=== PATIENT | male | born 2000 | race Caucasian/White ===

== ENCOUNTER 2018-03-04 12:48 | Emergency (ER) | payer OTHER, SELFPAY ==
[2018-03-04 13:02] VITALS: BP 112/77; PULSE 71; RESP 18; TEMP 37.1; O2SAT 97
--- NOTE | 2018-03-04 13:26 | DI.REPORT_ITS ---
SYMPTOM/DIAGNOSIS: CRUSH INJURY MID FOOT RIGHT FOOT: There is no evidence of a fracture or dislocation.
[2018-03-04] MEDS: Acetaminophen 500 MG TAB 1000 MG PO (13:36)
[2018-03-04] MEDS: Ibuprofen 600 MG TAB PO (13:36)
--- NOTE | 2018-03-04 13:47 | ED.GENADUL ---
Disposition Clinical Impression: Foot contusion Disposition: HOME Condition: Fair Instructions: Foot Contusion (ED) Additional Instructions: Encourage rest, ice, elevation. Tylenol and/or ibuprofen as needed for discomfort. Continue with postoperative shoe while pain persists. Do not drive in the shoe. Please follow-up with occupational health next week for reevaluation. Please call to schedule appointment. If you develop new or worsening symptoms please seek care urgently once again. Referrals: Occupational Medicine [Outside] Forms: Work Release Medical Decision Making - Medical Decision Making Patient presents today with chief complaint of right foot pain after dropping a pod on his foot while at work. No other injury noted. Patient was initially able to ambulate well but states that as the pain is increased she is began having difficulty doing so secondary to pain. Exam is concerning for small area of erythema localized to the dorsal aspect of the foot consistent with where she was struck. Good range of motion of his toes and ankle. He is reporting that he has some tingling in his toes. We will obtain x-ray to evaluate for possible fracture. Patient will be given Tylenol and ibuprofen to help with this discomfort. I discussed this with the patient is in agreement. X-ray reviewed by myself as well as radiologist with no acute abnormalities noted. I discussed these findings with the patient. We discussed treatment options. Given his level of discomfort, and feel that immobilization to help with discomfort is appropriate at this time. We discussed multiple immobilization techniques and he is decided that the postoperative shoe would likely work the best for him. Encourage rest, ice, elevation. Advised Tylenol and/or ibuprofen as needed for discomfort. Advised to follow-up with occupational health in 1 week for reevaluation. We discussed new/worsening symptoms when to seek care urgently once again. All his questions and concerns were addressed and he is in agreement this plan. Patient exam able to ambulate well with postoperative shoe. He did not feel that further interventions such as crutches are necessary at this point. History of Present Illness - General Chief complaint: Orthopedic Stated complaint: RT FOOT INJURY Time Seen by Provider: 03/04/18 13:17 Source: patient, RN notes reviewed Mode of arrival: ambulatory Limitations: no limitations - History of Present Illness Initial comments: Patient is 18-year-old male presenting today with chief complaint right foot pain. He reports a prior to arrival, while at work, he dropped a 5 pound pod on his right foot. Reports that since that time the pain is been so severe that he has had difficulty ambulating. Reports that the pain is radiating generalized about the foot but he denies any trauma except for the dorsal aspect of the midfoot. Has noted a small area of erythema with a positive struck. He was wearing sneakers at the time the incident. Denies other injury the time of the incident. Does report that the pain is radiating into the ankle but denies any trauma to the ankle itself. Reports that he has no having some tingling into all of his digits. - Related Data Unknown [No Known Home Meds] 03/04/18 Allergies Allergy/AdvReac Type Severity Reaction Status Date / Time No Known Allergies Allergy Unverified 03/04/18 13:07 Review of Systems Constitutional: no symptoms reported. denies: chills, fever Respiratory: no symptoms reported Musculoskeletal: as per HPI Skin: as per HPI Neurological: as per HPI Past Medical History - Past Medical History Medical history: no medical history Surgical history: no surgical history General Exam - General Limitations: no limitations General appearance: alert, in no apparent distress - Eye Eye exam: Present: normal apperance - Respiratory Respiratory exam: Absent: respiratory distress - Extremities Exam Extremities exam: Present: full ROM, tenderness, normal capillary refill. Absent: normal inspection (Exam of the patient's right lower extremity is significant for a small circular erythematous swollen area to the dorsal aspect of the foot. Is approximately 5 mm in diameter. Patient has good movement of his toes, full range of motion of the ankle although he does report that this increases the pain in the foot. No pain with palpation over the fifth metatarsal. Pain is elicited with palpation over the plantar surface of the foot. Pain seems to be fairly diffuse despite the very localized area of erythema.), pedal edema, joint swelling, calf tenderness - Neurological Exam Neurological exam: Present: alert, abnormal gait (Patient is ambulating with antalgic gait) - Psychiatric Psychiatric exam: Present: normal affect, normal mood - Skin Skin exam: Present: warm, dry, intact, erythema (As above) Course Vital Signs - 24 hr 03/04/18 13:02 Temperature 37.1 C Pulse 71 Respiratory 18 Rate Blood Pressure 112/77 Pulse Oximetry 97
== END 2018-03-04 14:28 | disposition home or self-care (01) ==
PROVIDERS: Emergency Provider Student in an Organized Health Care Education/Training Program
DX: S90.31XA Contusion of right foot, initial encounter (principal); W20.8XXA Other cause of strike by thrown, projected or falling object, initial encounter; Y99.0 Civilian activity done for income or pay
CPT/HCPCS: 29515; 99284; 73630; 99283

== ENCOUNTER 2021-03-07 09:06 | Outpatient (REF) | payer SELFPAY ==
[2021-03-07 14:19] LABS: HCT 43.6 % (40.0-50.0); MCH 28.2 pg (27.0-33.0); MCHC 34.4 % (32.0-36.0); MPV 10.3 fL (8.0-11.0); Platelet Count 281 10^3/uL (130-400); RBC 5.32 10^6/uL (4.36-5.78); RDW 12.1 % (11.8-14.1); RDW-SD 35.9 fL; WBC 5.32 10^3/uL (4.4-10.8)
[2021-03-07 14:41] LABS: ALT 34 U/L (16-63); AST 20 U/L (15-37); Albumin 4.3 g/dL (3.4-5.0); Alkaline Phosphatase 67 U/L (46-116); BUN 10 mg/dL (7-18); Bilirubin, Total 0.5 mg/dL (0.2-1.0); CREATININE 0.8 mg/dL (0.70-1.30); Calcium 9.2 mg/dL (8.5-10.1); Chloride 105 mmol/L (98-107); Cholesterol 123 mg/dL (<200); Glucose 91 mg/dL (74-106); HDL Cholesterol 69 mg/dL (40-60); Potassium 4.5 mmol/L (3.5-5.1); Sodium 141 mmol/L (136-145); TSH (W/Ref FT4) 2.47 uIU/mL (0.36-3.74); Total Protein 7.4 g/dL (6.4-8.2); Triglyceride < 25 mg/dL (<150)
[2021-03-07 14:54] LABS: LDL CHOLESTEROL 45 mg/dL (<100)
== END 2021-03-07 09:07 | disposition home or self-care (01) ==
LOC: NCHCN 09:06
PROVIDERS: Visit Provider Family Medicine
DX: R63.5 Abnormal weight gain (principal); R53.83 Other fatigue; L65.9 Nonscarring hair loss, unspecified
CPT/HCPCS: 80053; 80061; 83721; 85027; 84443